=== PATIENT | male | born 1955 | race Caucasian/White ===

== ENCOUNTER 2024-09-26 08:55 | Emergency (ER) | payer BC ==
[2024-09-26 09:31] LABS: APPEARANCE,URINE CLEAR (Clear); BILIRUBIN,URINE NEGATIVE (Negative); COLOR,URINE YELLOW (Yellow); GLUCOSE,URINE NEGATIVE (Negative); KETONES,URINE NEGATIVE (Negative); LEUKOCYTE ESTERASE,URINE NEGATIVE (Negative); NITRITE,URINE NEGATIVE (Negative); OCCULT BLOOD,URINE NEGATIVE (Negative); PH,URINE 6.5 (5.0-8.0); PROTEIN,URINE NEGATIVE (Negative); UROBILINOGEN,URINE 0.2 (0.2-1.0)
[2024-09-26] MEDS: Tamsulosin 0.4 MG Cap.ER PO ONE (09:57)
[2024-09-26 11:59] VITALS: BP 130/71; PULSE 54
== END 2024-09-26 10:22 | disposition home or self-care (01) ==
LOC: JD.ED 08:55
DX: R33.9 Retention of urine, unspecified (principal); I10 Essential (primary) hypertension; E66.9 Obesity, unspecified; E11.9 Type 2 diabetes mellitus without complications; Z79.899 Other long term (current) drug therapy; Z68.33 Body mass index [BMI] 33.0-33.9, adult
CPT/HCPCS: 51702; 81003; 99283; A9270

== ENCOUNTER 2024-09-28 09:10 | Emergency (ER) | payer BC ==
[2024-09-28 09:51] VITALS: BP 145/68; PULSE 64
[2024-09-28 14:06] LABS: APPEARANCE,URINE CLEAR (Clear); BILIRUBIN,URINE NEGATIVE (Negative); COLOR,URINE PINK (Yellow); GLUCOSE,URINE NEGATIVE (Negative); KETONES,URINE TRACE (Negative); LEUKOCYTE ESTERASE,URINE 2+ (Negative); NITRITE,URINE NEGATIVE (Negative); OCCULT BLOOD,URINE 3+ (Negative); PROTEIN,URINE 1+ (Negative); UROBILINOGEN,URINE 0.2 (0.2-1.0)
[2024-09-28 14:19] LABS: RBC,URINE >100 /hpf (0-5); WBC,URINE 20-30 /hpf (0-5)
[2024-09-28 14:20] LABS: BACTERIA,URINE MODERATE /hpf (FEW); MUCUS,URINE FEW /hpf (FEW); SQUAMOUS EPITHELIAL CELLS,UR 0-5 /hpf (0-5)
== END 2024-09-28 13:54 | disposition home or self-care (01) ==
LOC: JD.ED 09:10
DX: R33.9 Retention of urine, unspecified (principal); R31.0 Gross hematuria; I10 Essential (primary) hypertension; E11.9 Type 2 diabetes mellitus without complications; E66.9 Obesity, unspecified; Z79.899 Other long term (current) drug therapy; Z79.84 Long term (current) use of oral hypoglycemic drugs; Z88.0 Allergy status to penicillin; Z68.32 Body mass index [BMI] 32.0-32.9, adult
CPT/HCPCS: 81001; 87086; 87088; 87186; 99283

== ENCOUNTER 2024-10-01 10:41 | Emergency (ER) | payer BC ==
[2024-10-01 12:38] VITALS: BP 149/87; PULSE 66
== END 2024-10-01 12:10 | disposition home or self-care (01) ==
LOC: JD.ED 10:41
DX: N39.0 Urinary tract infection, site not specified (principal); R33.9 Retention of urine, unspecified; I10 Essential (primary) hypertension; E11.9 Type 2 diabetes mellitus without complications; E66.9 Obesity, unspecified; Z46.6 Encounter for fitting and adjustment of urinary device; Z79.899 Other long term (current) drug therapy; Z79.84 Long term (current) use of oral hypoglycemic drugs; Z68.32 Body mass index [BMI] 32.0-32.9, adult
CPT/HCPCS: 99283

== ENCOUNTER 2024-10-03 11:02 | Emergency (ER) | payer BC ==
[2024-10-03 11:45] LABS: APPEARANCE,URINE CLEAR (Clear); BILIRUBIN,URINE NEGATIVE (Negative); COLOR,URINE YELLOW (Yellow); GLUCOSE,URINE NEGATIVE (Negative); KETONES,URINE NEGATIVE (Negative); LEUKOCYTE ESTERASE,URINE NEGATIVE (Negative); NITRITE,URINE NEGATIVE (Negative); OCCULT BLOOD,URINE NEGATIVE (Negative); PROTEIN,URINE NEGATIVE (Negative); UROBILINOGEN,URINE 0.2 (0.2-1.0)
[2024-10-03] MEDS: Sodium Chloride 0.9% 1,000 ML IV SCH (11:58)
[2024-10-03] MEDS: Sodium Chloride 0.9% 10 ML Syringe FLUSH ONE (11:59)
[2024-10-03 12:00] LABS: BASOPHILS ABSOLUTE AUTO 0.1 K/mm3 (0.0-0.2); BASOPHILS PERCENT AUTO 0.8 % (0.0-1.0); EOSINOPHILS ABSOLUTE AUTO 0.2 K/mm3 (0.0-0.4); EOSINOPHILS PERCENT AUTO 1.7 % (0.0-6.0); HEMATOCRIT 47.6 % (42.0-52.0); HEMOGLOBIN 16.1 gm/dl (14.0-18.0); IMMATURE GRAN ABSOLUTE AUTO 0.02 K/mm3 (0.00-0.05); IMMATURE GRAN PERCENT AUTO 0.2 % (0.0-0.4); LYMPHOCYTES ABSOLUTE AUTO 1.9 K/mm3 (1.0-4.8); LYMPHOCYTES PERCENT AUTO 22.3 % (24.0-44.0); MEAN CORPUSCULAR HEMOGLOBIN 31.3 pg (28.0-32.0); MEAN CORPUSCULAR HGB CONC 33.8 g/dl (32.0-36.0); MEAN CORPUSCULAR VOLUME 92.4 fl (83.0-99.0); MEAN PLATELET VOLUME 10.5 fl (9.4-12.4); MONOCYTES ABSOLUTE AUTO 0.9 K/mm3 (0.0-0.8); MONOCYTES PERCENT AUTO 10.3 % (0.0-8.0); NEUTROPHILS ABSOLUTE AUTO 5.6 K/mm3 (1.8-7.7); NEUTROPHILS PERCENT AUTO 64.7 % (41.0-71.0); PLATELET COUNT,PLT 190 K/mm3 (150-400); RED BLOOD CELL COUNT 5.15 M/mm3 (4.52-5.90); WHITE BLOOD CELL COUNT,WBC 8.67 K/mm3 (3.9-11.3)
[2024-10-03 12:23] LABS: A/G RATIO 0.8 (1-2); ALBUMIN 3.2 g/dl (3.4-5.0); ANION GAP 11.9 (5-15); BILIRUBIN TOTAL 0.5 mg/dL (0.2-1.0); CALCIUM 9.2 mg/dL (8.5-10.1); EST CRCL DRUG DOSING (CG) 77.68 mL/min; POTASSIUM,K 3.9 mEq/L (3.5-5.1); PROTEIN TOTAL,TP 7.3 g/dl (6.4-8.2)
[2024-10-03] MEDS: Sodium Chloride 0.9% 10 ML Syringe FLUSH PRN (12:39)
[2024-10-03] MEDS: Iopamidol 612 MG/ML 100 ML Bottle IVPUSH ONE (12:39)
[2024-10-03] MEDS ORDERED: Sulfamethoxazole/Trimethoprim 800-160 MG Tab PO ONE (14:37)
[2024-10-03 15:30] VITALS: BP 165/85; PULSE 67
== END 2024-10-03 14:45 | disposition home or self-care (01) ==
LOC: JD.ED 11:02
DX: N40.1 Benign prostatic hyperplasia with lower urinary tract symptoms (principal); R33.8 Other retention of urine; I10 Essential (primary) hypertension; E11.9 Type 2 diabetes mellitus without complications; Z88.0 Allergy status to penicillin; Z90.49 Acquired absence of other specified parts of digestive tract
CPT/HCPCS: 36415; 51702; 51798; 74177; 80053; 81003; 85025; 99284; J7030; Q9967

== ENCOUNTER 2024-10-31 10:24 | Emergency (ER) | payer BC ==
[2024-10-31 10:57] VITALS: PULSE 60
[2024-10-31 11:38] LABS: APPEARANCE,URINE CLOUDY (Clear); GLUCOSE,URINE NEGATIVE (Negative); OCCULT BLOOD,URINE 2+ (Negative)
[2024-10-31 11:42] LABS: EPITHELIAL CELLS,URINE 0-5 /hpf (0-5)
[2024-10-31 11:53] LABS: BASOPHILS ABSOLUTE AUTO 0.1 K/mm3 (0.0-0.2); BASOPHILS PERCENT AUTO 0.4 % (0.0-1.0); EOSINOPHILS ABSOLUTE AUTO 0.0 K/mm3 (0.0-0.4); EOSINOPHILS PERCENT AUTO 0.2 % (0.0-6.0); IMMATURE GRAN ABSOLUTE AUTO 0.07 K/mm3 (0.00-0.05); IMMATURE GRAN PERCENT AUTO 0.5 % (0.0-0.4); LYMPHOCYTES ABSOLUTE AUTO 1.0 K/mm3 (1.0-4.8); LYMPHOCYTES PERCENT AUTO 7.1 % (24.0-44.0); MEAN PLATELET VOLUME 10.3 fl (9.4-12.4); MONOCYTES ABSOLUTE AUTO 1.4 K/mm3 (0.0-0.8); MONOCYTES PERCENT AUTO 10.0 % (0.0-8.0); NEUTROPHILS ABSOLUTE AUTO 11.2 K/mm3 (1.8-7.7); NEUTROPHILS PERCENT AUTO 81.8 % (41.0-71.0); NRBC ABSOLUTE 0.00 (0.00-0.02); NRBC PERCENT 0.0 % (0.0-0.2); PLATELET COUNT,PLT 171 K/mm3 (150-400); RED BLOOD CELL COUNT 4.73 M/mm3 (4.52-5.90); WHITE BLOOD CELL COUNT,WBC 13.75 K/mm3 (3.9-11.3)
[2024-10-31 12:11] LABS: A/G RATIO 0.6 (1-2); ALANINE AMINOTRANSFERASE,ALT 78.0 U/L (16-63); ASPARTATE AMNIOTRANSFERASE,AST 54.0 U/L (15-37); BILIRUBIN TOTAL 0.6 mg/dL (0.2-1.0); BLOOD UREA NITROGEN,BUN 17.0 mg/dL (7-18); CARBON DIOXIDE,CO2 26.0 mEq/L (21-32); CHLORIDE,CL 102.0 mEq/L (98-107); CREATININE 1.1 mg/dL (0.7-1.3); EST CRCL DRUG DOSING (CG) 70.62 mL/min; ESTIMATED GFR 72.0 mL/min (>60); GLUCOSE RANDOM 174.0 mg/dL (70-99); POTASSIUM,K 3.3 mEq/L (3.5-5.1); PROTEIN TOTAL,TP 6.5 g/dl (6.4-8.2); SODIUM,NA 137.0 mEq/L (136-145)
[2024-10-31 19:39] VITALS: BP 129/75
== END 2024-10-31 13:35 | disposition home or self-care (01) ==
LOC: JD.ED 10:24
DX: T83.091A Other mechanical complication of indwelling urethral catheter, initial encounter (principal); N30.00 Acute cystitis without hematuria; I10 Essential (primary) hypertension; E11.9 Type 2 diabetes mellitus without complications; Z90.49 Acquired absence of other specified parts of digestive tract; Z88.0 Allergy status to penicillin; Z79.899 Other long term (current) drug therapy
CPT/HCPCS: 36415; 51702; 80053; 81001; 85025; 87086; 99284; A9270; 87088; 87186

== ENCOUNTER 2024-11-21 19:12 | Emergency (ER) | payer BC ==
[2024-11-21] MEDS: cefTRIAXone 1 GM, Lidocaine 1% 2.1 ML IM STA (20:14)
[2024-11-21 20:28] LABS: APPEARANCE,URINE CLOUDY (Clear); GLUCOSE,URINE NEGATIVE (Negative); OCCULT BLOOD,URINE 3+ (Negative)
[2024-11-21 20:39] LABS: EPITHELIAL CELLS,URINE NOT SEEN /hpf (0-5)
[2024-11-21 20:40] VITALS: BP 141/65; PULSE 69
== END 2024-11-21 20:30 | disposition home or self-care (01) ==
LOC: JD.ED 19:12
DX: T83.098A Other mechanical complication of other urinary catheter, initial encounter (principal); N39.0 Urinary tract infection, site not specified; G89.18 Other acute postprocedural pain
CPT/HCPCS: 81001; 87086; 96372; 99283; A9270; J0696; J2003

== ENCOUNTER 2025-02-25 21:05 | Emergency (ER) | payer BC ==
[2025-02-25 22:33] LABS: APPEARANCE,URINE CLOUDY (Clear); GLUCOSE,URINE NEGATIVE (Negative); OCCULT BLOOD,URINE 3+ (Negative)
[2025-02-25 23:21] LABS: EPITHELIAL CELLS,URINE 0-5 /hpf (0-5)
[2025-02-25 23:25] VITALS: BP 137/86; PULSE 76
== END 2025-02-25 23:00 | disposition home or self-care (01) ==
LOC: JD.ED 21:05
DX: T83.011A Breakdown (mechanical) of indwelling urethral catheter, initial encounter (principal); T83.511A Infection and inflammatory reaction due to indwelling urethral catheter, initial encounter; N39.0 Urinary tract infection, site not specified; E11.9 Type 2 diabetes mellitus without complications; E66.9 Obesity, unspecified; Z86.16 Personal history of COVID-19; Z79.899 Other long term (current) drug therapy; Z68.33 Body mass index [BMI] 33.0-33.9, adult; Z88.0 Allergy status to penicillin; Y84.6 Urinary catheterization as the cause of abnormal reaction of the patient, or of later complication, without mention of misadventure at the time of the procedure
CPT/HCPCS: 51702; 81001; 87086; 87088; 87186; 99283; A9270